=== PATIENT | male | born 1980 | race Caucasian/White ===

== ENCOUNTER 2021-08-20 15:19 | Emergency (ER) | payer OTHER ==
[~2021-08-20] VITALS: Ht 180.3 cm; Wt 100.5 kg
[2021-08-20 15:20] VITALS: BP 118/80
[2021-08-20] MEDS ORDERED: NS 1,000 ML IV ONE (16:05)
[2021-08-20] MEDS ORDERED: KETOROLAC 30 MG/ML 1ML VIAL IV ONE (16:05)
[2021-08-20 17:11] LABS: BASO # 0.1 10^3/uL (0.0-0.2); BASO % 0.5 % (0.0-1.0); EOS # 0.1 10^3/uL (0.0-0.5); EOS % 0.8 % (0.0-3.0); HEMATOCRIT 46.8 % (42.0-52.0); HEMOGLOBIN 16.2 g/dl (13.5-17.5); LYMPH # 1.5 10^3/uL (1.5-5.0); LYMPH % 8.8 % (24.0-44.0); MEAN CORPUSCULAR HEMOGLOBIN 31.5 pg (27.0-33.0); MEAN CORPUSCULAR HGB CONC 34.6 g/dl (32.0-36.5); MEAN CORPUSCULAR VOLUME 91.1 fl (80.0-96.0); MONO # 0.8 10^3/uL (0.0-0.8); MONO % 4.6 % (2.0-8.0); NEUTROPHILS # 14.2 10^3/uL (1.5-8.5); NEUTROPHILS % 84.8 % (36.0-66.0); PLATELET COUNT, AUTOMATED 262 10^3/uL (150-450); RED BLOOD COUNT 5.14 10^6/uL (4.30-6.10); WHITE BLOOD COUNT 16.7 10^3/uL (4.0-10.0)
[2021-08-20 17:44] LABS: ALBUMIN 4.5 GM/DL (3.2-5.2); ALT/SGPT 22 U/L (12-78); BILIRUBIN,DIRECT 0.2 MG/DL (0.0-0.2); BILIRUBIN,TOTAL 0.7 MG/DL (0.2-1.0); BLOOD UREA NITROGEN 13 MG/DL (7-18); CALCIUM LEVEL 8.7 MG/DL (8.5-10.1); CARBON DIOXIDE LEVEL 27 MEQ/L (21-32); CHLORIDE LEVEL 105 MEQ/L (98-107); CREATININE FOR GFR 1.34 MG/DL (0.70-1.30); GLOMERULAR FILTRATION RATE > 60.0 (>60); GLUCOSE, FASTING 110 MG/DL (70-100); LIPASE 69 U/L (73-393); POTASSIUM SERUM 3.9 MEQ/L (3.5-5.1); SODIUM LEVEL 140 MEQ/L (136-145); TOTAL PROTEIN 7.9 GM/DL (6.4-8.2)
[2021-08-20] MEDS ORDERED: TAMSULOSIN 0.4 MG CAP PO ONE (18:05)
[2021-08-20] MEDS ORDERED: KETO10TAB PO (18:06)
[2021-08-20] MEDS ORDERED: FLOM0.4C39 PO (18:06)
== END 2021-08-20 18:39 | disposition home or self-care (01) ==
LOC: M ED 15:19
DX: N20.1 Calculus of ureter (principal); J30.81 Allergic rhinitis due to animal (cat) (dog) hair and dander
CPT/HCPCS: 74176; 80048; 80076; 81001; 83690; 85025; 96361; 96374; 99283; J1885